=== PATIENT | male | born 1955 ===

== ENCOUNTER 2017-09-29 06:06 | Inpatient (IN) | payer BC ==
[~2017-09-29] VITALS: Ht 177.8 cm; Wt 79.4 kg
[2017-09-29] VITALS (11 sets, daily range): BP systolic 109–139; BP diastolic 64–97
[2017-09-29] MEDS ORDERED: GABAPENTIN800 MG ORAL (07:16)
[2017-09-29] MEDS ORDERED: LISINOPRIL30 MG ORAL (07:16)
[2017-09-29] MEDS ORDERED: HYDROCODON-ACE1 EA16 ORAL (07:16)
[2017-09-29] MEDS ORDERED: CIALIS2.5 MG ORAL (07:16)
[2017-09-29] MEDS ORDERED: Sterile Water Irrig 1000ml IRRIG ONE (07:30)
[2017-09-29] MEDS ORDERED: LR 1000ml ONE (07:30)
[2017-09-29] MEDS ORDERED: NS Irrig 1000ml ONE (07:30)
[2017-09-29] MEDS ORDERED: Lidocaine 1% MPF 10mg/ml 5ml ONE (07:31)
[2017-09-29] MEDS ORDERED: Propofol 200mg/20ml IV ONE (07:31)
[2017-09-29] MEDS ORDERED: EPINEPHrine 1mg/1ml Amp ONE (07:31)
[2017-09-29] MEDS ORDERED: Thrombin 5000 units spray kit TOPIC ONE (07:32)
[2017-09-29] MEDS ORDERED: Neosporin Oint Ud Pkt TOPIC ONE (07:32)
[2017-09-29] MEDS ORDERED: Thrombin 5000 units TOPIC ONE (07:32)
[2017-09-29] MEDS ORDERED: Bupivacaine 0.5% Inj 30 ml vial INJ ONE (07:33)
[2017-09-29] MEDS ORDERED: Zemuron 50mg/5ml Inj IV ONE (07:33)
[2017-09-29] MEDS ORDERED: Bacitracin 50000 Units Vial ONE (07:33)
[2017-09-29] MEDS ORDERED: Gelfoam Absorbable 1gm powder pkt TOPIC ONE (07:33)
--- NOTE | 2017-09-29 07:48 | Pre-Procedure Note/Attestation ---
Pre-Procedure Note/Attestation Complete Prior to Procedure Planned Procedure: right Procedure Narrative: Right L3-4 decompression Indications for Procedure Pre-Operative Diagnosis: Lumbar disc hernia Attestation I attest that I discussed the nature of the procedure; its benefits; risks and complications; and alternatives (and the risks and benefits of such alternatives ), prior to the procedure, with the patient (or the patient's legal customer service representative teacher). I attest that, if there was a reasonable possibility of needing a blood transfusion, the patient (or the patient's legal customer service representative teacher) was given the [facility] standardized written summary, pursuant to the Roderick Marisela Blood Safety Act ([place] Health and Safety Code # 1645, as amended). I attest that I re-evaluated the patient just prior to the surgery and that there has been no change in the patient's H&P, except as documented below: GENE RAYA Sep 29, 2017 07:48
[2017-09-29] MEDS ORDERED: fentaNYL 100 mcg/2 mL IV ONE (08:00)
[2017-09-29] MEDS ORDERED: ePHEDrine 50mg/ml Inj ONE (08:23)
--- NOTE | 2017-09-29 09:59 | Anethesia Preoperative Eval ---
Anesthesia Pre-op PMH/ROS General Date of Evaluation: Sep 29, 2017 Time of Evaluation: 07:00 Anesthesiologist: kathleen ASA Score: ASA 1 Mallampati Score Class I : Soft palate, uvula, fauces, pillars visible Class II: Soft palate, uvula, fauces visible Class III: Soft palate, base of uvula visible Class IV: Only hard plate visible Mallampati Classification: Class I Allergies: Coded Allergies: No Known Allergies (Unverified , 09/27/17) Anesthesia Pre-op Phys. Exam Physician Exam Last Vital Signs Date Time Temp Pulse Resp B/P (MAP) Pulse Ox O2 Delivery O2 Flow Rate FiO2 09/29/17 07:12 97.6 59 18 139/97 99 Room Air 97.6 Airway Exam Mallampati Score: Class I Jeronimo Olivarez MD Sep 29, 2017 09:58
[2017-09-29] MEDS ORDERED: Ketorolac 30mg Inj IV PRN (10:00)
[2017-09-29] MEDS ORDERED: Morphine Sulfate 10mg/ml Inj ONE (11:11)
[2017-09-29] MEDS ORDERED: Ketorolac 30mg Inj ONE (11:13)
--- NOTE | 2017-09-29 11:21 | Diagnostic Imaging Report ---
Indication: Back pain, intraoperative Technique: Intraoperative images Comparison: none Findings: Single intraoperative image documents posterior fusion hardware bridging what is presumably L4, L5, and S1. There is a disc spacer at L4-5 Impression: Intraoperative imaging, as described
[2017-09-29] MEDS ORDERED: HYDROmorphone 1mg/ml Carpuject SUBQ PRN (11:30)
[2017-09-29] MEDS ORDERED: D5 1/2NS 1,000 ML IV SCH ×2 (11:30→13:30)
[2017-09-29] MEDS ORDERED: Norco 5mg/325mg tab ORAL PRN ×2 (11:30)
[2017-09-29] MEDS ORDERED: Tylenol #3 tab (300mg/30mg) ORAL PRN ×2 (11:30)
--- NOTE | 2017-09-29 11:32 | Immediate Post-Op Evaluation ---
Immediate Post-Op Evalulation Immediate Post-Op Evalulation Procedure: L3/4 Right Dissectomy and decompression Date of Evaluation: Sep 29, 2017 Time of Evaluation: 11:32 IV Fluids: 1250 Estimated Blood Loss: 50 Urinary Output: 275 Nausea: No Vomiting: No Given Within 1 Hr of Incision: Yes Jeronimo Olivarez MD Sep 29, 2017 11:32
--- NOTE | 2017-09-29 11:35 | Brief Operative Note ---
Immediate Post Operative Note Operative Note Pre-op Diagnosis: Lumbar disc hernia Procedure: Right L3-4 discectomy and resection of synovial cyst Post-op Diagnosis: same Findings: consistent w/pre-op dx studies, other - synovial cyst and scar Surgeon: Jonna Raya Cane Burner: Melody Eubanks Anesthesia: general Specimen: yes - disc Complications: none Condition: stable Fluids: per Anesth Estimated Blood Loss: minimal Drains: none Implant(s) used?: No GENE RAYA Sep 29, 2017 11:35
[2017-09-29] MEDS: fentaNYL 100 mcg/2 mL IV PRN ×2 (11:57→12:25)
--- NOTE | 2017-09-30 08:00 | Operative Note - Dictated ---
DATE OF OPERATION: 09/29/2017 PREOPERATIVE DIAGNOSIS: Right L3-L4 disk herniation. POSTOPERATIVE DIAGNOSES: 1. Right L3-L4 disk herniation. 2. Synovial cyst. 3. Extensive scar formation and stenosis. PROCEDURES: 1. Extensive scar formation making it very difficult to perform the case due to the previous surgery and injections. This added to extensive time consume during the surgery dealing with scar formation and dissection. 2. Right L3-L4 decompression. 3. Right L3-L4 medial facetectomy. 4. Right L3-L4 transpedicular far lateral decompression discectomy. 5. Synovial cyst resection, right L3-L4. 6. Neurolysis of right L4, extensive, due to scar formation. 7. Placement of fat graft over the exposed dura. 8. Right L4 foraminotomy. 9. Right L3-L4 discectomy and decompression of the dura. 10. SSEP of upper and lower extremities for three hours. 11. Motor evoked potential of upper and lower extremities for three hours. 12. Interpretation of MRI of the lumbar spine. 13. Use of intraoperative fluoroscopy for three hours. 14. Interpretation of x-ray of the lumbar spine x4. 15. Microscopic plastic closure of the wound, 3.5 cm, but this closure was redo and much more difficult due to trimming of the skin edges. 16. Use of intraoperative microscope. 17. Length of incision approximately 4 cm. SURGEON: Shaheen Garza M.D. SKI PATROL OFFICER SURGEON: Magi Eubanks M.D. ANESTHESIA: General. COMPLICATIONS: None. CONDITION: Transferred to recovery room under stable condition. INDICATION FOR PROCEDURE: The patient is a 61-year-old gentleman, status post L4-S1 fusion with right-sided radiculopathy that was not responding to conservative treatment. The patient opted to proceed with surgery as a result. The risks of surgery, which included, but not limited to, infection, bleeding, stroke, , damage to the surrounding structures, need for future operative procedures, no improvement of symptoms, worsening of symptoms, and other unfortunate risks have been explained extensively. The patient understood :52 level disease and possibility of future fusion and recurrent disk herniation. DESCRIPTION OF PROCEDURE: After informed consent was obtained, the patient was taken to the operating room where he was placed under general anesthesia intubation. The area of interest was shaved, prepped, and draped. SSEP motor potentials were obtained and remained stable and improved after the decompression. At this point, a needle was inserted at the superior end of the incision and the was adjusted lower to target the L3-L4 with fluoroscopy. Planned incision was marked and injected with Marcaine with epinephrine 0.5%. The incision was made using a 10 blade knife, which was taken to the fascia, which was divided to the right of midline. We exposed the lamina of L3 and L4. There was extensive bony formation that had to be drilled out after we confirmed the position with fluoroscopy. Microscope was brought in and we used a high-speed drill to drill through the very thick lamina. The facet and the pars were preserved. Underneath there was extensive scar formation and ligamentum flavum could not be visualized other than a sheet of scar attached to the dura. After we exposed the upper part of of dura, we did a laminotomy on top of L4 and obtained the two edges of dura and then we used [employer] to extensively dissect and find the edges of the dura and dissected on the lateral aspect of the dura and stimulated the nerve and the surrounding tissue to make sure that we do not damage the nerve. The motor signals remained stable as well as SSEPs throughout intact. At this point, after we found the edge of the dura, we did a foraminotomy and we used extensive amount of dissection to be able to mobilize the nerve sitting it up from the adhesions around it. At this point, a large disc herniation underneath was removed. On the way in, there was a large synovial cyst that caused all of this scar formations that had to be removed as well. We then proceeded with discectomy, and we did a medial discectomy as well as far lateral discectomy by dissecting under the facet. At this point, hemostasis was obtained. The nerve and the dura were well decompressed. Foraminotomy was again extended to make sure the nerve would not be compressed and we got the improvement. At this point, hemostasis was obtained. We closed the fascia using 0 Vicryl sutures followed by 2-0 Vicryl sutures for closure of the skin and microscopic plastic closure of the wound using 4-0 Monocryl. We had to trim the edges of the wound redo wound closure as well. The patient tolerated the procedure well, was transferred to recovery room after extubation, and I immediately discussed the case with the family namely his , who was waiting in the waiting area. No complications. Shaheen Garza M.D. DR: SHAKIRA JOB#: [id number] CC:
--- NOTE | 2017-09-30 13:32 | Discharge Summary ---
Discharge Summary Hospital Course Date of Admission Sep 29, 2017 at 06:06 Date of Discharge Sep 29, 2017 at 15:25 Admitting Diagnosis HPI Jero Gerard is a 61 year old male who was admitted on Sep 29, 2017 at 06:06 for Left L3-4 Disc Herniation Hospital Course [id number] Discharge Discharge Disposition Patient was discharged to Home (01) Janeth Wilkerson NP Sep 30, 2017 13:32
[2017-09-30 15:16] VITALS: BP 124/76
--- NOTE | 2017-09-30 15:16 | 48 Hour Post Anesthesia Eval ---
Post Anesthesia Evaluation Procedure: L3/4 Right Dissectomy and decompression Date of Evaluation: Sep 29, 2017 Time of Evaluation: 12:45 Blood Pressure Systolic: 124 0: 76 Pulse Rate: 75 Respiratory Rate: 22 Temperature (Fahrenheit): 97.6 O2 Sat by Pulse Oximetry: 98 Airway: patent Nausea: No Vomiting: No Pain Intensity: 2 Hydration Status: adequate Cardiopulmonary Status: stable Mental Status/LOC: patient returned to baseline Follow-up Care/Observations: n/a Post-Anesthesia Complications: none Follow-up care needed: ready to discharge DONNA MARTE M.D. Sep 30, 2017 15:16
--- NOTE | 2017-10-01 03:00 | Discharge Summary 2 SIG ---
DATE OF ADMISSION: 09/29/2017 DATE OF DISCHARGE: 09/29/2017 BRIEF HOSPITAL COURSE: The patient is a 61-year-old male, status post L4 through S1 fusion with right-sided radiculopathy that was not responding to conservative treatment. He was diagnosed to have right L3-L4 disc herniation and was admitted for right L3-L4 discectomy with resection of synovial cyst. Postoperatively, he was admitted for pain management. He was continued on IV fluid. Diet was advanced as tolerated. Vitals were stable and saturating well with room air. He was afebrile. He was eventually discharged home. FINAL DIAGNOSES: 1. Right L3-L4 disc herniation. 2. Status post right L3-L4 discectomy and dissection of synovial cyst. Please refer to operative report. DISPOSITION: The patient was discharged home. DISCHARGE INSTRUCTIONS: Follow up in a week. Shaheen Garza M.D. I have been assigned to dictate discharge summary on this account and I was not involved in the patient's management. Janeth Wilkerson N.P. DR: SAL JOB#: [id number] CC:
== END 2017-09-29 15:25 | disposition home or self-care (01) | DRG 520 ==
LOC: SDSOVERFLO 06:06 → EDSTATUS 07:30 → 3E 12:45
DX: M51.26 Other intervertebral disc displacement, lumbar region (principal); M71.38 Other bursal cyst, other site; M48.061 Spinal stenosis, lumbar region without neurogenic claudication; Z98.1 Arthrodesis status
CPT/HCPCS: 72020; 76000; 87081; J2405